=== PATIENT | female | born 1955 | race Caucasian/White ===

== ENCOUNTER 2017-05-26 10:38 | Day surgery (SDC) | payer BC ==
[~2017-05-26 10:38] MED LIST: Lactated Ringers 1,000 ML IV SCH; Propofol 200 MG/20 ML SDV ONE; Sodium Chloride 0.9% 10 ML Syringe FLUSH PRN; Sodium Chloride 0.9% 2.5 ML Syringe FLUSH PRN
--- NOTE | 2017-05-26 11:13 | PCM.PREANE ---
Preanesthetic Assessment - Anesthesia/Transfusion/Family Hx Anesthesia History: Prior Anesthesia Without Reaction Family History of Anesthesia Reaction: No Transfusion History: No Prior Transfusion(s) Intubation History: Unknown - Review of Systems General: No Symptoms Pulmonary: No Symptoms Cardiovascular: No Symptoms Gastrointestinal: Other (h/o colon polyps 5 years ago) Neurological: No Symptoms Other: Reports: None - Physical Assessment Height: 1.65 m Weight: 55.792 kg ASA Class: 1 Mental Status: Alert & Oriented x3 Airway Class: Mallampati = 2 Dentition: Reports: Normal Dentition Thyro-Mental Finger Breadths: 3 Mouth Opening Finger Breadths: 3 ROM/Head Extension: Full Lungs: Clear to Auscultation, Normal Respiratory Effort Cardiovascular: Regular Rate, Regular Rhythm - Allergies Allergies/Adverse Reactions: Allergies Allergy/AdvReac Type Severity Reaction Status Date / Time Penicillins Allergy Rash Verified 05/21/17 10:40 Sulfa (Sulfonamide Allergy Other Verified 05/21/17 10:43 Antibiotics) - Blood Blood Available: No - Anesthesia Plan Pre-Op Medication Ordered: None - Acknowledgements Anesthesia Type Planned: MAC Pt an Appropriate Candidate for the Planned Anesthesia: Yes Alternatives and Risks of Anesthesia Discussed w Pt/Guardian: Yes Pt/Guardian Understands and Agrees with Anesthesia Plan: Yes PreAnesthesia Questionnaire Gastrointestinal History: Reports: Colon Polyp Neurological History: Reports: Headaches, Chronic - Past Surgical History GI Surgical History: Reports: Colonoscopy (x2) Female Surgical History: Reports: Breast Biopsy - SUBSTANCE USE Smoking Status *Q: Former Smoker Recreational Drug Use History: No - HOME MEDS Home Medications: Home Meds Calcium Carbonate/Vitamin D3 [Calcium 600-Vit D3 400 Tablet] 1 tab PO DAILY [History] Estrogens, Conjugated [Premarin Vaginal Crm] 1 applic VAG ASDIRECTED 05/21/17 [ History] L.acidoph,Paracasei, B.lactis [Probiotic] 1 tab PO DAILY 05/21/17 [History] Tretinoin 1 applic TOP ASDIRECTED 05/21/17 [History] - CURRENT (IN HOUSE) MEDS Current Meds: Current Medications Lactated Ringer's (Ringers, Lactated) 1,000 mls @ 125 mls/hr IV ASDIRECTED JACQUES Last Admin: 05/26/17 11:11 Dose: 125 mls/hr Sodium Chloride (Saline Flush) 10 ml FLUSH ASDIRECTED PRN PRN Reason: Keep Vein Open Sodium Chloride (Saline Flush) 2.5 ml FLUSH ASDIRECTED PRN PRN Reason: Keep Vein Open Sodium Chloride (Saline Flush) 10 ml FLUSH ASDIRECTED PRN PRN Reason: Keep Vein Open Sodium Chloride (Saline Flush) 2.5 ml FLUSH ASDIRECTED PRN PRN Reason: Keep Vein Open Discontinued Medications Lidocaine HCl (Xylocaine-Mpf 1%) Confirm Administered Dose 5 ml .ROUTE .STK-MED ONE Stop: 05/26/17 09:51 Propofol (Diprivan 20 Ml) Confirm Administered Dose 400 mg .ROUTE .STK-MED ONE Stop: 05/26/17 09:51
[2017-05-26] MEDS ORDERED: fentaNYL 100 MCG/2 ML SDV ONE (11:55)
--- NOTE | 2017-05-26 12:50 | PCM48HPAN ---
Post Anesthesia Note - EVALUATION WITHIN 48HRS OF ANESTHETIC Vital Signs in Normal Range: Yes Patient Participated in Evaluation: Yes Respiratory Function Stable: Yes Airway Patent: Yes Cardiovascular Function Stable: Yes Hydration Status Stable: Yes Pain Control Satisfactory: Yes Nausea and Vomiting Control Satisfactory: Yes Mental Status Recovered: Yes Resp Rate: 11 - COMMENTS/OBSERVATIONS Free Text/Narrative:: no anesthesia problems
--- NOTE | 2017-05-26 14:27 | PCM.OPNOTE ---
- General Post-Op/Procedure Note Date of Surgery/Procedure: 05/26/17 Operative Procedure(s): Colonoscopy Findings: transverse colon polyp, diverticulosis Pre Op Diagnosis: History of hyperplastic polyps Post-Op Diagnosis: Transverse colon polyp, diverticulosis Anesthesia Technique: [facility] [place] Primary Surgeon: Camryn Bill Condition: Good Free Text/Narrative:: Intake & Output 05/25/17 05/26/17 05/26/17 22:59 06:59 14:59 Intake Total 800 Balance 800
--- NOTE | 2017-05-26 16:49 | OR ---
SURGEON: DANIEL GRIER MD DATE OF PROCEDURE: 05/26/2017 PREOPERATIVE DIAGNOSIS: Screening colonoscopy. POSTOPERATIVE DIAGNOSES: 1. Diverticulosis. 2. Transverse colon polyp. PROCEDURE PERFORMED: Colonoscopy. ANESTHESIA: MAC. INSTRUMENT USED: Olympus colonoscope. EXTENT OF EXAM: To the cecum. PREPARATION: Good. LIMITATIONS: None. INDICATION FOR EXAMINATION: The patient is a 61-year-old female, who presents for a screening colonoscopy. We discussed the procedure, expected perioperative course, and risks including bleeding, infection, damage to surrounding structures including perforation. The patient verbalized understanding and wishes to proceed. PROCEDURE IN DETAIL: The patient was brought into the endoscopy suite and placed in the left lateral decubitus position. A time-out was completed verifying the patient's name, age, date of , allergies, and procedure to be performed. Monitored anesthesia care was induced and continuous oxygen was provided via nasal cannula throughout the procedure. After adequate sedation was achieved, a digital rectal exam was performed. This exam was within normal limits. A well lubricated colonoscope was inserted into the rectum and advanced under direct visualization to the level of cecum. Cecum was identified by both visual and anatomic landmarks. A photograph was taken of cecal cap as well as with the scope retroflexed within the cecum. The scope was then fully withdrawn while examining the color, texture, anatomy, and integrity of the mucosa from the cecum to the anal canal. The patient was found to have an approximately 5 mm polyp within the transverse colon. This was removed in piecemeal fashion using a cold biopsy forceps. The remainder of the colonoscopy was remarkable for diverticulosis throughout the colon. The scope was then brought into the rectum and retroflexed to allow visualization of the anal canal opening. This appeared normal, and a photograph was taken. The scope was then straightened out and fully withdrawn. The cecum to anus time was 6 minutes. The patient was transferred to the PACU in stable condition. ENDOSCOPIC DIAGNOSES: 1. Diverticulosis. 2. Transverse colon polyp. RECOMMENDATIONS: Follow up in clinic in 2 weeks. ERNESTO KHANNA /[id number]
== END 2017-05-26 13:00 | disposition home or self-care (01) ==
LOC: MW.SDS 10:38
PROVIDERS: ATTEND Surgery
DX: Z12.11 Encounter for screening for malignant neoplasm of colon (principal); D12.3 Benign neoplasm of transverse colon; K57.30 Diverticulosis of large intestine without perforation or abscess without bleeding; Z88.2 Allergy status to sulfonamides; Z86.010 Personal history of colon polyps; Z87.891 Personal history of nicotine dependence; Z98.890 Other specified postprocedural states; Z79.899 Other long term (current) drug therapy
CPT/HCPCS: 45380; J3010; J7120; 88305; J2704

== ENCOUNTER 2022-07-15 09:39 | Day surgery (SDC) | payer BC ==
[~2022-07-15 09:39] MED LIST changes: -Propofol 200 MG/20 ML SDV ONE; +Sodium Chloride 0.9% 20 ML SDV IV PRN
[2022-07-15] MEDS ORDERED: fentaNYL 100 MCG/2 ML SDV ONE (10:49)
[2022-07-15] MEDS ORDERED: Lidocaine 2% 5 ML SDV ONE (10:49)
[2022-07-15] MEDS ORDERED: Propofol 200 MG/20 ML SDV ONE (10:49)
== END 2022-07-15 12:25 | disposition home or self-care (01) ==
LOC: MW.SDS 09:39
PROVIDERS: ATTEND Surgery
DX: Z12.11 Encounter for screening for malignant neoplasm of colon (principal); D12.3 Benign neoplasm of transverse colon; K63.89 Other specified diseases of intestine; K57.30 Diverticulosis of large intestine without perforation or abscess without bleeding; F41.9 Anxiety disorder, unspecified; Z86.010 Personal history of colon polyps; Z88.0 Allergy status to penicillin; Z79.899 Other long term (current) drug therapy; Z88.2 Allergy status to sulfonamides; Z87.891 Personal history of nicotine dependence
CPT/HCPCS: 45380; J2704; J3010; J7120; J3490

== ENCOUNTER 2024-05-10 06:34 | Day surgery (SDC) | payer MEDICARE ==
[2024-05-06 12:25] LABS: BASOPHILS ABSOLUTE AUTO 0.03 K/uL (0.00-0.20); BASOPHILS PERCENT AUTO 0.4 % (0.0-1.0); EOSINOPHILS ABSOLUTE AUTO 0.16 K/uL (0.00-0.45); EOSINOPHILS PERCENT AUTO 2.1 % (0.0-6.0); HEMATOCRIT 42.6 % (37.0-47.0); HEMOGLOBIN 14.3 g/dL (12.0-16.0); IMMATURE GRAN ABSOLUTE AUTO 0.02 K/uL (0.00-0.05); IMMATURE GRAN PERCENT AUTO 0.3 % (0.0-0.4); LYMPHOCYTES ABSOLUTE AUTO 1.39 K/uL (1.00-4.80); LYMPHOCYTES PERCENT AUTO 18.4 % (24.0-44.0); MEAN CORPUSCULAR HEMOGLOBIN 32.5 pg (28.0-32.0); MEAN CORPUSCULAR HGB CONC 33.6 g/dL (32.0-36.0); MEAN CORPUSCULAR VOLUME 96.8 fL (83.0-99.0); MEAN PLATELET VOLUME 9.8 fL (9.4-12.3); MONOCYTES ABSOLUTE AUTO 0.84 K/uL (0.00-0.80); MONOCYTES PERCENT AUTO 11.1 % (0.0-8.0); NEUTROPHILS ABSOLUTE AUTO 5.11 K/uL (1.80-7.70); NEUTROPHILS PERCENT AUTO 67.7 % (41.0-71.0); PLATELET COUNT,PLT 271 K/uL (150-400); WHITE BLOOD CELL COUNT,WBC 7.55 K/uL (3.9-11.3)
[2024-05-06 12:31] LABS: A/G RATIO 1.3 (0.9-1.6); ALBUMIN 3.9 g/dL (3.4-5.0); BILIRUBIN TOTAL 0.7 mg/dL (0.2-1.0); CALCIUM 9.6 mg/dL (8.5-10.1); CARBON DIOXIDE,CO2 28.9 mmol/L (21.0-32.0); CREATININE 0.8 mg/dL (0.6-1.0); EST CRCL DRUG DOSING (CG) 57.46 mL/min; POTASSIUM,K 3.9 mmol/L (3.5-5.1); PROTEIN TOTAL,TP 6.9 g/dL (6.4-8.2)
[~2024-05-10 06:34] MED LIST changes: +Clindamycin Phosphate in D5W 900 MG in Premix Bag 1 BAG IV ONE; -Lactated Ringers 1,000 ML IV SCH
[2024-05-10] MEDS: Lactated Ringers 1,000 ML IV SCH (07:04)
[2024-05-10] MEDS ORDERED: Bupivacaine 0.5% 10 ML SDV ONE (07:06)
[2024-05-10] MEDS ORDERED: Lidocaine 1% 20 ML MDV ONE (07:06)
[2024-05-10] MEDS: Clindamycin Phosphate in D5W 900 MG in Premix Bag 1 BAG IV ONE (07:20)
[2024-05-10] MEDS ORDERED: fentaNYL 100 MCG/2 ML SDV ONE (07:24)
[2024-05-10] MEDS ORDERED: propofoL 500 MG/50 ML 50 ML ONE (07:24)
[2024-05-10] MEDS ORDERED: dexmedeTOMIDine HCl 200 MCG/2 ML SDV ONE (07:24)
[2024-05-10] MEDS ORDERED: Sodium Chloride 0.9% 20 ML ONE (07:24)
[2024-05-10] MEDS ORDERED: ePHEDrine 50 MG/ML SDV ONE (08:02)
[2024-05-10] MEDS ORDERED: Ondansetron 4 MG/2 ML SDV IVPUSH PRN (08:16)
[2024-05-10] MEDS ORDERED: Albuterol 0.083% 2.5 MG/3 ML Neb Soln NEB PRN (08:16)
[2024-05-10] MEDS ORDERED: fentaNYL 50 MCG/ML SDV IVPUSH PRN (08:16)
[2024-05-10] MEDS ORDERED: Naloxone 0.4 MG/ML SDV IVPUSH PRN (08:16)
[2024-05-10] MEDS ORDERED: Morphine 2 MG/ML SYRINGE IVPUSH PRN (08:16)
[2024-05-10] MEDS ORDERED: Metoclopramide 10 MG/2 ML SDV IVPUSH PRN (08:16)
[2024-05-10] MEDS ORDERED: HYDROmorphone 1 MG/ML Syringe IVPUSH PRN (08:16)
[2024-05-10] MEDS ORDERED: Phenylephrine HCl In 0.9% NaCl 1 MG/10 ML Syringe IVPUSH PRN (08:16)
[2024-05-10] MEDS ORDERED: Ketorolac 30 MG/ML SDV ONE (08:37)
== END 2024-05-10 10:10 | disposition home or self-care (01) ==
LOC: MW.SDS 06:34
PROVIDERS: ATTEND Surgery
DX: Z45.2 Encounter for adjustment and management of vascular access device (principal); C50.919 Malignant neoplasm of unspecified site of unspecified female breast; Z88.0 Allergy status to penicillin; Z88.2 Allergy status to sulfonamides; Z79.899 Other long term (current) drug therapy
CPT/HCPCS: 36415; 36561; 71045; 76000; 80053; 85025; J0665; J0736; J1642; J1885; J2704; J3010; J7120; 00532; C1788; J3490

== ENCOUNTER 2024-07-06 06:42 | Day surgery (SDC) | payer MEDICARE ==
[~2024-07-06 06:42] MED LIST changes: -Clindamycin Phosphate in D5W 900 MG in Premix Bag 1 BAG IV ONE; -Sodium Chloride 0.9% 10 ML Syringe FLUSH PRN; -Sodium Chloride 0.9% 2.5 ML Syringe FLUSH PRN; -Sodium Chloride 0.9% 20 ML SDV IV PRN; +ceFAZolin 2 GM in Water For Injection, Sterile 20 ML IVPUSH ONE
[2024-07-06] MEDS ORDERED: fentaNYL 100 MCG/2 ML SDV ONE (07:18)
[2024-07-06] MEDS ORDERED: Propofol 200 MG/20 ML SDV ONE (07:18)
[2024-07-06] MEDS ORDERED: Lidocaine 1% 5 ML VIAL ONE (07:19)
[2024-07-06] MEDS: Lactated Ringers 1,000 ML IV SCH (07:19)
[2024-07-06] MEDS ORDERED: Ondansetron 4 MG/2 ML SDV ONE (07:19)
[2024-07-06] MEDS ORDERED: Lidocaine 1% 20 ML MDV ONE (07:20)
[2024-07-06] MEDS ORDERED: Bupivacaine 0.5% 30 ML SDV ONE (07:20)
[2024-07-06] MEDS ORDERED: Midazolam 1 MG/ML 2 ML SDV ONE (07:37)
[2024-07-06] MEDS ORDERED: Phenylephrine HCl In 0.9% NaCl 1 MG/10 ML Syringe IVPUSH PRN (07:56)
[2024-07-06] MEDS ORDERED: Morphine 2 MG/ML SYRINGE IVPUSH PRN (07:56)
[2024-07-06] MEDS ORDERED: Albuterol 0.083% 2.5 MG/3 ML Neb Soln NEB PRN (07:56)
[2024-07-06] MEDS ORDERED: fentaNYL 50 MCG/ML SDV IVPUSH PRN (07:56)
[2024-07-06] MEDS ORDERED: Naloxone 0.4 MG/ML SDV IVPUSH PRN (07:56)
[2024-07-06] MEDS ORDERED: Metoclopramide 10 MG/2 ML SDV IVPUSH PRN (07:56)
[2024-07-06] MEDS ORDERED: Ondansetron 4 MG/2 ML SDV IVPUSH PRN (07:56)
[2024-07-06] MEDS ORDERED: HYDROmorphone 1 MG/ML Syringe IVPUSH PRN (07:56)
[2024-07-06] MEDS ORDERED: Phenylephrine HCl In 0.9% NaCl 1 MG/10 ML Syringe ONE (08:05)
[2024-07-06] MEDS ORDERED: ceFAZolin 1 GM Vial ONE (08:09)
[2024-07-06] MEDS ORDERED: Dexamethasone 4 MG/ML 5 ML MDV ONE (08:15)
[2024-07-06] MEDS ORDERED: Sugammadex Sodium 200 MG/2 ML VIAL IV ONE (08:38)
== END 2024-07-06 09:47 | disposition home or self-care (01) ==
LOC: MW.SDS 06:42
PROVIDERS: ATTEND Surgery
DX: Z45.2 Encounter for adjustment and management of vascular access device (principal); C50.919 Malignant neoplasm of unspecified site of unspecified female breast; Z88.0 Allergy status to penicillin; Z88.2 Allergy status to sulfonamides
CPT/HCPCS: 36590; J0665; J0690; J1100; J2003; J2250; J2371; J2704; J3010; J7120; 00400; 88300; J2405; J3490